=== PATIENT | male | born 1945 | race Caucasian/White ===

== ENCOUNTER → 2017-02-03 | Outpatient (CLI) | payer OTHER ==
[~2017-02-03] MED LIST: BACITRACIN 50000 UNIT VIAL ONE; BUPIVACAINE/EPINEPHRINE 0.5% MPF 1:200,000 30 ML VIAL ONE; CITA40TA4 PO; GABA-113 PO; HEPARIN SOD (PORCINE) 1000 UNIT/ML 10 ML VIAL ONE; HYDR-3419 PO; NAPR500T3 PO; OMEG10007 PO; PRT/40 PO; THROMBIN 5000 UNITS KIT ONE; THROMBIN FOR SOLN 20000 UNIT KIT ONE
--- NOTE | 2017-02-03 10:51 | DIAGNOSTIC IMAGING REPORT ---
CT LUMBAR SPINE WITHOUT CT DOSE: 668.51 mGycm CLINICAL HISTORY: LUMBAR SPINE PAIN, LUMBAR STENOSIS, PRE-OP TECHNIQUE: Helical images were acquired in transverse plane. Reformatted sagittal and coronal images were reviewed. CONTRAST: No contrast was administered COMPARISON STUDY: None. FINDINGS: L1-2 level: There is minimal retrolisthesis of L1 on L2. There is a circumferential disc bulge present. There is mild spinal stenosis. There is no stomach and foraminal narrowing. L2-3 level: There is a circumferential disc bulge present. There is moderate spinal stenosis. There is no significant foraminal narrowing. L3-4 level: There is a circumferential disc bulge present. There is moderate to severe spinal stenosis. There is no significant foraminal narrowing. L4-5 level: There are postsurgical changes of a discectomy and interbody fusion. There is a grade 1 spondylolisthesis of L4 on L5. There is posterior fusion with L4 and L5 pedicle screws. There is facet joint fragmentation. There is a 16 x 3 mm bony density which extends into the spinal canal. This results in spinal canal narrowing. L5-S1 level: There is a mild circumferential disc bulge. There is no significant spinal or foraminal stenosis. IMPRESSION: 1. Postsurgical changes of a discectomy and spinal fusion at the L4-5 level. At this level there is facet joint fragmentation, and there is a bony density extending into the spinal canal measuring 16 x 3 mm 2. Multilevel spondylitic changes with multilevel spinal stenosis most severe at the L2-3 and L3-4 levels. Electronically signed by: Chester Jimenez M.D. 02/03/2017 10:50 AM Dictated Date/Time: 02/03/2017 10:45 AM
== END | disposition home or self-care (01) ==
LOC: C.CTS 10:22
PROVIDERS: ATTEND Orthopaedic Surgery Orthopaedic Surgery of the Spine
DX: M54.5 Low back pain (principal)

== ENCOUNTER 2017-02-18 08:32 | Inpatient (IN) | payer OTHER ==
[2017-01-27 08:41] VITALS: BMI 26.0
--- NOTE | 2017-01-27 09:26 | PAT Medication Instructions ---
Service Date Jan 27, 2017. Current Home Medication List Citalopram (Citalopram Hydrobromide), 1 TAB PO QAM Fish Oil ([place]-3), 1 CAP PO PRN Gabapentin (Neurontin), 300 MG PO TID Hydrocodon/Acetaminophen 5MG/300MG (Vicodin (5MG/300MG)), 1 TAB PO Q6H PRN for Pain Naproxen (Naproxen), 1 TAB PO BID Pantoprazole (Pantoprazole Sodium), 1 TAB PO QAM Medication Instructions For Your Scheduled Surgery Naproxen (Naproxen), 1 TAB PO BID (per surgeon for instructions) - Hold the following medications 2 weeks prior to surgery: Fish Oil ([place]-3), 1 CAP PO PRN - Take the following medications the morning of surgery with a sip of water: Pantoprazole (Pantoprazole Sodium), 1 TAB PO QAM Gabapentin (Neurontin), 300 MG PO TID Citalopram (Citalopram Hydrobromide), 1 TAB PO QAM Hydrocodon/Acetaminophen 5MG/300MG (Vicodin (5MG/300MG)), 1 TAB PO Q6H PRN for Pain (okay to take up to 4 hours prior to surgery if needed) - Take the following medications as scheduled the night before surgery: Gabapentin (Neurontin), 300 MG PO TID Hydrocodon/Acetaminophen 5MG/300MG (Vicodin (5MG/300MG)), 1 TAB PO Q6H PRN for Pain If you have any questions please call us at [phone] (Genevieve Rodgers PA-C) or [phone] or [phone]
--- NOTE | 2017-01-27 10:04 | DIAGNOSTIC IMAGING REPORT ---
CHEST PREADMISSION(PA/LAT) CLINICAL HISTORY: PAT preoperative evaluation COMPARISON STUDY: No previous studies for comparison. FINDINGS: The bones soft tissues and hemidiaphragms are normal. The cardiomediastinal silhouette is normal. The lungs are clear. The pulmonary vasculature is normal. IMPRESSION: Negative chest. Electronically signed by: Odilon Jacobsen M.D. 01/27/2017 10:02 AM Dictated Date/Time: 01/27/2017 10:02 AM
[2017-01-27 10:46] LABS: BASO % 0.4 %; BASO ABS # 0.02 K/uL (0-0.2); COMPLETE YES; EOS % 3.7 %; HEMATOCRIT 38.4 % (42-52); IG% 0.2 %; LYMPH % 18.5 %; LYMPH ABS # 0.91 K/uL (1.2-3.4); MEAN CELL VOLUME 79.7 fL (80-100); MEAN CORPUSCULAR HEMOGLOBIN 27.4 pg (25-34); MEAN CORPUSCULAR HGB CONC 34.4 g/dl (32-36); MEAN PLATELET VOLUME 10.8 fL (7.4-10.4); MONO % 7.9 %; NEUT % 69.3 %; PLATELET COUNT 182 K/uL (130-400); RED BLOOD COUNT 4.82 M/uL (4.7-6.1); WHITE BLOOD COUNT 4.93 K/uL (4.8-10.8)
[2017-01-27 11:07] LABS: URINE APPEARANCE CLEAR (CLEAR); URINE BILIRUBIN NEG (NEG); URINE COLOR YELLOW; URINE NITRITE NEG (NEG); URINE PH 5.5 (4.5-7.5); URINE SPECIFIC GRAVITY 1.025 (1.000-1.030); UROBILINOGEN NEG (NEG)
[2017-01-27 11:23] LABS: BUN/CREATININE RATIO 20.9 (10-20); CALCIUM 8.9 mg/dl (8.5-10.1); CREATININE 1.3 mg/dl (0.60-1.40); POTASSIUM 4.4 mmol/L (3.5-5.1)
[2017-01-27 11:25] LABS: MANUAL MICROSCOPIC REQUIRED? NO; REVIEW REQ? NO
[2017-01-27 11:26] LABS: URINE EPITHELIAL CELL AUTO 0-5 /lpf (0-5)
[2017-02-18] VITALS (8 sets, daily range): BP systolic 99–159; BP diastolic 64–111; PULSE 62–88; TEMP 36.4–36.9; O2SAT 90–99; Ht 175.3 cm; Wt 79.9 kg
[~2017-02-18] VITALS: Ht 175.3 cm; Wt 79.9 kg
[~2017-02-18 08:32] MED LIST changes: -BACITRACIN 50000 UNIT VIAL ONE; -BUPIVACAINE/EPINEPHRINE 0.5% MPF 1:200,000 30 ML VIAL ONE; +CEFAZOLIN 2000 MG/60 ML D5W IV SCH; +CeleBREX 200 MG CAP PO SCH; -HEPARIN SOD (PORCINE) 1000 UNIT/ML 10 ML VIAL ONE; +LACTATED RINGER'S 1000ML 1,000 ML IV SCH; +PANT40TA2 PO; +PREGABALIN 75 MG CAP PO SCH; -PRT/40 PO; -THROMBIN 5000 UNITS KIT ONE; -THROMBIN FOR SOLN 20000 UNIT KIT ONE
[2017-02-18] MEDS ORDERED: FENTANYL CITRATE INJ 50 MCG/1 ML 2 ML VIAL ONE ×4 (11:17→14:27)
[2017-02-18] MEDS ORDERED: MIDAZOLAM HCL 1 MG/ML 2ML VIAL ONE (11:17)
[2017-02-18] MEDS ORDERED: HYDROmorphone INJ 2 MG/ML SYR/VIAL IV PRN (11:30)
[2017-02-18] MEDS ORDERED: EpHEDrine SULFATE INJ 50 MG/ML AMP IV PRN (11:30)
[2017-02-18] MEDS ORDERED: PHENYLEPHRINE 100MCG/ML 5ML SYR IV PRN (11:30)
[2017-02-18] MEDS ORDERED: ATROPINE SULFATE 0.1 MG/ML 5ML SYR IV PRN (11:30)
[2017-02-18] MEDS ORDERED: ONDANSETRON INJ 2 MG/ML 2 ML VIAL IV PRN ×2 (11:30→14:30)
--- NOTE | 2017-02-18 12:08 | History and Physical ---
History & Physical Date Feb 18, 2017. Chief Complaint LBP and bilateral leg pain History of Present Illness The patient is a 71 year old male with complaints of severe bilateral hip pain and back pain that has progressed for years. He had multiple lumbar decompressions done with the final one being a L4-5 fusion complicated with CSF leak done in 2000. After a trauma he developed a R foot drop that has persisted , he uses an AFO on right. He also has subjective weakness in his LLE but not as severe. He reports numbness in both LE's below knee. no incontinence. His CT scan shows L3-4 and L4-5 stenosis. there are pedicle screws at L4-5. MRI confirms stenosis greatest at L3-5. mild DDD/stenosis L2-3 but not significant. Past Medical/Surgical History hx lumbar surgeries, last 2000 bilateral rotator cuff repair ben GERD chronic LBP kidney disease stage III depression Additional History Hepatic Disease: No Endocrine Disorder: No Kidney Disease: Yes Hypertension: No Heart Disease: No Bleeding Tendencies: No Infectious Diseases: No Allergies Coded Allergies: No Known Allergies (Unverified , 02/18/17) Home Medications Scheduled Citalopram (Citalopram Hydrobromide), 1 TAB PO QAM Fish Oil ([place]-3), 1 CAP PO PRN Gabapentin (Neurontin), 300 MG PO TID Naproxen (Naproxen), 1 TAB PO BID Pantoprazole (Pantoprazole Sodium), 1 TAB PO QAM Scheduled PRN Hydrocodon/Acetaminophen 5MG/300MG (Vicodin (5MG/300MG)), 1 TAB PO Q6H PRN for Pain Physical Examination Skin: warm/dry Eyes: normal inspection ENT: normal ENT inspection Head: normocephalic, atraumatic Neck: supple, trachea midline Respiratory/Chest: lungs clear, no respiratory distress Cardiovascular: regular rate, rhythm Back: normal inspection (midline scar) Neurologic/Psych: alert, oriented x 3, + pertinent finding (bilateral absent DTRS, str DF on right 1/5 on left 2/5, decreased sensation lt tch BLE's below knees. ) Diagnosis L3-5 stenosis, L4- 5 PSF, bilateral LE foot drops with progressive pain Plan of Treatment Hardware removal L4-5, L3-4 decompression, L4-5 revision decompression, risk of CSF leak and nerve injury emphasized
[2017-02-18] MEDS ORDERED: HYDROmorphone INJ 2 MG/ML SYR/VIAL ONE ×3 (12:48→14:28)
[2017-02-18] MEDS ORDERED: THROMBIN FOR SOLN 20000 UNIT KIT ONE ×2 (13:00→13:06)
[2017-02-18] MEDS ORDERED: BACITRACIN 50000 UNIT VIAL ONE (13:06)
[2017-02-18] MEDS ORDERED: THROMBIN 5000 UNITS KIT ONE (13:06)
[2017-02-18] MEDS ORDERED: HEPARIN SOD (PORCINE) 1000 UNIT/ML 10 ML VIAL ONE (13:06)
[2017-02-18] MEDS ORDERED: BUPIVACAINE/EPINEPHRINE 0.5% MPF 1:200,000 30 ML VIAL ONE (13:06)
[2017-02-18] MEDS ORDERED: ROCURONIUM BROMIDE 10 MG/ML 5 ML VIAL ONE (13:43)
[2017-02-18] MEDS ORDERED: PROPOFOL IV EMULSION 10 MG/ML 20 ML VIAL IV ONE (13:43)
[2017-02-18] MEDS ORDERED: DEXAMETHASONE SOD INJ 4 MG/ML VIAL ONE (13:43)
[2017-02-18] MEDS ORDERED: LIDOCAINE HCL 2% 2 ML VIAL (20MG/ML) ONE (13:43)
[2017-02-18] MEDS ORDERED: ONDANSETRON INJ 2 MG/ML 2 ML VIAL ONE ×2 (13:43→14:29)
[2017-02-18] MEDS: FLOSEAL HEMOSTATIC MATRIX 10ML TOP ONE ×2 (14:15→14:20)
[2017-02-18] MEDS ORDERED: SODIUM CHLORIDE 0.9% 1000ML 1,000 ML IV SCH (14:23)
[2017-02-18] MEDS: SODIUM CHLORIDE 0.9% 1000ML 1,000 ML IV SCH (14:23)
--- NOTE | 2017-02-18 14:23 | [facility] Post Operative Brief Note ---
Immediate Operative Summary Operative Date Feb 18, 2017. Pre-Operative Diagnosis L3-5 stenosis, L4- 5 Posterior Spinal Fusion, bilateral lower extermity foot drops with progressive pain Post-Operative Diagnosis L3-5 stenosis, L4- 5 Posterior Spinal Fusion, bilateral lower extermity foot drops with progressive pain Procedure(s) Performed L4-L5 Hardware Removal; L3-L5 Decompression, Posterior Spinal Fusion, Instrumentation, Arteriocyte Surgeon Dr Masood Walter Supervisor/Port Director Surgeon(s) Jayson Carson PC-A Estimated Blood Loss 450ml Findings dict Specimens A: Explanted hardware lumbar spine L4-L5
[2017-02-18] MEDS ORDERED: NEOSTIGMINE METHYLSULFATE 1 MG/ML 10ML VIAL ONE (14:29)
[2017-02-18] MEDS ORDERED: EpHEDrine SULFATE INJ 50 MG/ML AMP ONE (14:29)
[2017-02-18] MEDS ORDERED: GLYCOPYRROLATE INJ 0.2 MG/ML VIAL ONE (14:29)
[2017-02-18] MEDS ORDERED: EpHEDrine SULFATE 50MG/5ML SYR ONE (14:29)
[2017-02-18] MEDS ORDERED: ACETAMINOPHEN IV 100 ML IV PRN (14:30)
[2017-02-18] MEDS ORDERED: LORAZEPAM 0.5 MG TAB PO PRN (14:30)
[2017-02-18] MEDS ORDERED: ALUMINUM/MAGNESIUM SUSP 30 ML UDC PO PRN (14:30)
[2017-02-18] MEDS ORDERED: METOCLOPRAMIDE HCL INJ 5 MG/ML 2 ML VIAL IV PRN (14:30)
[2017-02-18] MEDS ORDERED: LORAZEPAM INJ 0.5 MG in SYRINGE 0 ML IV PRN (14:30)
[2017-02-18] MEDS ORDERED: PROMETHAZINE HCL INJ 12.5 MG in SODIUM CHLORIDE 0.9% 50ML 50 ML IV PRN (14:30)
[2017-02-18] MEDS ORDERED: FAMOTIDINE 20 MG TAB PO PRN (14:30)
[2017-02-18] MEDS ORDERED: hydrOXYzine HCL 25 MG TAB PO PRN (14:30)
[2017-02-18] MEDS ORDERED: SOD PHOSPHATE/SOD BIPHOSPHATE ENEMA 132 ML BTL PR PRN (14:30)
[2017-02-18] MEDS ORDERED: HYDROmorphone INJ 0.5 MG/0.5 ML SYR IV PRN (14:30)
[2017-02-18] MEDS ORDERED: BISACODYL 10 MG SUPP PR PRN (14:30)
[2017-02-18] MEDS ORDERED: MAGNESIUM HYDROXIDE SUSP 30 ML UDC PO PRN (14:30)
[2017-02-18] MEDS ORDERED: NALOXONE HCL 0.4 MG/1 ML VIAL/CARP IV PRN ×2 (14:30)
--- NOTE | 2017-02-18 14:41 | DIAGNOSTIC IMAGING REPORT ---
LUMBAR SPINE 2 OR 3 VIEW CLINICAL HISTORY: L4-L5 HARDWARE REMOVAL;L3-L5 DECOMP/FUSION COMPARISON STUDY: Lumbar spine CT February 03, 2017. Fluoroscopy time: 7 seconds. FINDINGS: These 2 fluoroscopic images demonstrate a posterior decompression. Anterolisthesis of L4 and L5 is unchanged. There are are bilateral pedicle screws at the L3 and L5 levels with a right pedicle screw at the L4 level. There are interconnecting rods. Hardware is intact. A previous L4-L5 discectomy with interbody spacer placement as noted. IMPRESSION: Findings consistent with an L3-L5 pedicle screw fusion. Electronically signed by: Conrado Guajardo M.D. 02/18/2017 2:39 PM Dictated Date/Time: 02/18/2017 2:37 PM
[2017-02-18] MEDS ORDERED: MoRPHine SULFATE 1 MG/ML 50 ML PCA CASS ONE (14:44)
--- NOTE | 2017-02-18 15:15 | OPERATIVE REPORT ---
DATE OF OPERATION: 02/18/2017 PREOPERATIVE DIAGNOSES: 1. Previous L4-L5 instrumented fusion. 2. Residual L4-L5 stenosis. 3. L3-L4 spinal stenosis adjacent level degeneration and L3-L4 degenerative spondylolisthesis - grade 1. POSTOPERATIVE DIAGNOSES: Same. PROCEDURES: 1. L3 laminectomy with revision L4-L5 decompression. 2. Hardware removal L4-L5 - bilateral. 3. Segmental pedicle screw instrumentation - bilateral L3-L5 with K2M Murchison pedicle screws. 4. Posterolateral fusion L3-L4 - bilateral with local bone, bone putty, bone marrow aspirate, tricalcium phosphate. 5. Right iliac crest bone marrow aspiration stem cell concentration, application bone graft clothing designer. SURGEON: Masood Walter M.D. INVENTORY ANALYST: Jayson Carson PA-C. Please note he participated in all portions of the procedure and was critical for performance of procedure, participated in positioning, prepping, draping, retraction, and wound closure. ANESTHESIA: General endotracheal anesthesia. COMPLICATIONS: None. ESTIMATED BLOOD LOSS: 450 mL. PROCEDURE: After identification of patient and operative level, he was brought to the OR where he underwent induction of general anesthesia. He was then positioned prone on Gilbert OR table. All bony prominences were well padded. Care was taken to avoid pressure on the periorbital area. Lumbosacral area was sterilely prepped and draped in usual fashion. Antibiotics were administered, time-out was performed, level was confirmed and skin incision was infiltrated with Marcaine with epinephrine and skin incision was made from spinous process of L2-L5. I exposed the previous hardware, identified the fusion mass and confirmed level with fluoroscopy. I then did an L3 laminectomy using an osteotome to remove the hypertrophied facets at L3-L4 bilaterally. I then completed decompression with Kerrisons at L3-L4. I was able to pass the probe along the medial border of the pedicle of L4 confirming decompression as well as into the foramina of L3 bilaterally. I then filled the dural tube it distally and caudally and redecompressed the scar laminectomy bed of L4-L5. A great deal atypical ossification dorsal scarred dural tube removed all loose dorsal ossifications, so that I could pass the probe in the neural foramina of L4 and palpated the pedicles of L5 bilaterally. I then proceeded to remove the hardware at L4-L5 bilaterally and confirmed the fusion was intact. I then placed pedicle screws bilaterally into L3, on the left at L4 bilaterally and L5 with K2M Murchison pedicle screws. I lowered the Jamison frame to restore lordosis, applied rods and end caps from L3-L5 bilaterally and final tightened all endcaps and decorticated transverse process of L3 and fusion mass at facets of L3-L4 with high speed bur bilaterally. I then packed the lateral gutters with bone graft mixture consisting of local bone was morselized in a bone mill. Bone marrow aspirate taken from the right iliac crest via separate stab incision with a Jamshidi needle concentrated bone marrow stem cell concentration system and then mixed with the clothing designer. I then packed this over the decorticated transverse process and I did irrigate prior to bone grafting. I also placed a MENG drain deep prior to its layered closure. All sponge and needle counts were correct at the end of the case. I attest to the content of the Intraoperative Record and any orders documented therein. Any exceptio ns are noted below.
--- NOTE | 2017-02-18 15:17 | Anesthesiology Progress Note ---
Anesthesia Post Op Note Date & Time Feb 18, 2017 at 15:15 Vital Signs Pain Intensity: 1 Vital Signs Past 12 Hours Date Time Temp Pulse Resp B/P Pulse Ox O2 Delivery O2 Flow Rate FiO2 02/18/17 15:05 76 15 121/72 100 Nasal Cannula 4 02/18/17 14:55 74 20 127/67 100 Mask 10 02/18/17 14:45 85 12 142/93 95 Mask 10 02/18/17 14:35 36.7 97 11 131/76 95 Mask 10 02/18/17 10:06 36.5 71 20 159/96 98 Room Air Notes Mental Status: alert / awake / arousable, participated in evaluation Pt Amnestic to Procedure: Yes Nausea / Vomiting: adequately controlled Pain: adequately controlled Airway Patency, RR, SpO2: stable & adequate BP & HR: stable & adequate Hydration State: stable & adequate Anesthetic Complications: no major complications apparent
[2017-02-18] MEDS: MoRPHine SULFATE 1 MG/ML 50 ML PCA CASS IV PRN ×2 (16:45→22:53)
[2017-02-18] MEDS: DEXAMETHASONE INJ 6 MG in SYRINGE 0 ML IV SCH (20:09)
[2017-02-18] MEDS: CEFAZOLIN IV 1,000 MG in DEXTROSE 5% 50ML 50 ML IV SCH (20:14)
[2017-02-18] MEDS: GABAPENTIN 300 MG CAP PO SCH (20:16)
[2017-02-18] MEDS: DOCUSATE SODIUM/SENNA 50/8.6MG TAB PO SCH (20:17)
[2017-02-18] MEDS ORDERED: NURSING DECISION MEDICATION ORDER SCH (21:30)
[2017-02-18] MEDS ORDERED: COUGH DROP (SUGAR FREE) LOZ 24 LOZ/1 BOX PO PRN (21:45)
[2017-02-19] MEDS: DEXAMETHASONE INJ 6 MG in SYRINGE 0 ML IV SCH ×2 (01:58→10:08)
[2017-02-19] MEDS: SODIUM CHLORIDE 0.9% 1000ML 1,000 ML IV SCH (03:39)
[2017-02-19] MEDS: CEFAZOLIN IV 1,000 MG in DEXTROSE 5% 50ML 50 ML IV SCH (03:40)
[2017-02-19 03:57] VITALS: BP 108/65; PULSE 62; TEMP 36.6; O2SAT 96
[2017-02-19 05:35] LABS: COMPLETE YES; HEMATOCRIT 31.5 % (42-52); IG% 0.2 %; LYMPH % 3.2 %; LYMPH ABS # 0.26 K/uL (1.2-3.4); MEAN CELL VOLUME 79.1 fL (80-100); MEAN CORPUSCULAR HEMOGLOBIN 26.9 pg (25-34); MEAN PLATELET VOLUME 10.7 fL (7.4-10.4); MONO % 2.1 %; NEUT % 94.5 %; PLATELET COUNT 150 K/uL (130-400); RED BLOOD COUNT 3.98 M/uL (4.7-6.1); WHITE BLOOD COUNT 8.04 K/uL (4.8-10.8)
[2017-02-19 05:59] LABS: BUN/CREATININE RATIO 14.2 (10-20); CALCIUM 8.3 mg/dl (8.5-10.1); CREATININE 1.6 mg/dl (0.60-1.40); POTASSIUM 4.6 mmol/L (3.5-5.1)
[2017-02-19] MEDS ORDERED: HYDROmorphone INJ 1 MG/ML SYR IV PRN (06:00)
[2017-02-19] MEDS ORDERED: HYDROmorphone INJ 0.5 MG/0.5 ML SYR IV PRN (06:00)
[2017-02-19] MEDS ORDERED: DC PCA ONE (06:00)
[2017-02-19] MEDS ORDERED: NURSING VERBAL MED ORDER ONE (06:15)
[2017-02-19 07:20] VITALS: BP 92/57; PULSE 65; TEMP 36.8; O2SAT 97
[2017-02-19] MEDS: CITALOPRAM 40 MG TAB PO SCH (08:47)
[2017-02-19] MEDS: GABAPENTIN 300 MG CAP PO SCH ×3 (08:47→20:40)
[2017-02-19] MEDS: PANTOprazole SOD 40 MG TAB PO SCH (08:47)
--- NOTE | 2017-02-19 08:47 | Anesthesiology Progress Note ---
Anesthesia Post Op Note Date & Time Feb 19, 2017 at 08:46 Vital Signs Pain Intensity: 1.0 Vital Signs Past 12 Hours Date Time Temp Pulse Resp B/P Pulse Ox O2 Delivery O2 Flow Rate FiO2 02/19/17 07:20 36.8 65 16 92/57 97 Room Air 02/19/17 03:57 36.6 62 16 108/65 96 Room Air 02/18/17 23:55 Room Air 02/18/17 23:10 36.8 62 18 120/64 96 Room Air Notes Mental Status: alert / awake / arousable, participated in evaluation Pt Amnestic to Procedure: Yes Nausea / Vomiting: adequately controlled Pain: adequately controlled Airway Patency, RR, SpO2: stable & adequate BP & HR: stable & adequate Hydration State: stable & adequate Anesthetic Complications: no major complications apparent
--- NOTE | 2017-02-19 10:44 | Orthopedic Progress Note ---
Orthopedic Progress Note Date of Service Feb 19, 2017. Subjective Post OP Day: 1 Reports: feeling well, pain controlled w PO medications, Denies: SOB, calf pain , chest pain, complaints, light headedness, nausea / vomiting, using SILVERLIGHT DEVELOPER Objective calves soft nontender, N/V intact, dressing C/D/I, A&O x3, hemovac drainage Date Time Temp Pulse Resp B/P Pulse Ox O2 Delivery O2 Flow Rate FiO2 02/19/17 08:30 Room Air 02/19/17 07:20 36.8 65 16 92/57 97 Room Air 02/19/17 03:57 36.6 62 16 108/65 96 Room Air 02/18/17 23:55 Room Air 02/18/17 23:10 36.8 62 18 120/64 96 Room Air 02/18/17 19:45 36.6 66 16 110/65 98 Nasal Cannula 3.0 02/18/17 19:14 36.9 68 17 121/68 99 Nasal Cannula 3.0 02/18/17 18:45 36.6 71 17 121/72 97 Nasal Cannula 3.0 02/18/17 17:41 36.4 88 17 136/111 90 Nasal Cannula 3.0 02/18/17 17:10 36.7 74 17 99/67 99 Nasal Cannula 3.5 02/18/17 16:45 36.7 70 16 120/71 98 Nasal Cannula 4.0 02/18/17 16:45 98 Nasal Cannula 4.0 02/18/17 16:45 98 Nasal Cannula 4.0 02/18/17 16:30 71 14 131/74 99 Nasal Cannula 4 02/18/17 16:15 76 20 109/75 100 Nasal Cannula 4 02/18/17 16:00 80 19 104/68 97 Nasal Cannula 4 02/18/17 15:45 70 18 91/74 100 Nasal Cannula 4 02/18/17 15:35 71 14 119/75 100 Nasal Cannula 4 02/18/17 15:25 69 18 121/66 100 Nasal Cannula 4 02/18/17 15:15 36.3 71 17 128/74 100 Nasal Cannula 4 02/18/17 15:05 76 15 121/72 100 Nasal Cannula 4 02/18/17 14:55 74 20 127/67 100 Mask 10 02/18/17 14:45 85 12 142/93 95 Mask 10 02/18/17 14:35 36.7 97 11 131/76 95 Mask 10 Laboratory Results 24 Hours: Test 02/19/17 04:55 White Blood Count 8.04 K/uL Red Blood Count 3.98 M/uL Hemoglobin 10.7 g/dL Hematocrit 31.5 % Mean Corpuscular Volume 79.1 fL Mean Corpuscular Hemoglobin 26.9 pg Mean Corpuscular Hemoglobin Concent 34.0 g/dl Platelet Count 150 K/uL Mean Platelet Volume 10.7 fL Neutrophils (%) (Auto) 94.5 % Lymphocytes (%) (Auto) 3.2 % Monocytes (%) (Auto) 2.1 % Eosinophils (%) (Auto) 0.0 % Basophils (%) (Auto) 0.0 % Neutrophils # (Auto) 7.59 K/uL Lymphocytes # (Auto) 0.26 K/uL Monocytes # (Auto) 0.17 K/uL Eosinophils # (Auto) 0.00 K/uL Basophils # (Auto) 0.00 K/uL Assessment & Plan Assessment: doing well, preop symptoms improved, very pleased Plan: PT/scds/ d/c tomorrow?
[2017-02-19 11:46] VITALS: BP 123/66; PULSE 68; TEMP 36.7; O2SAT 99
[2017-02-19 15:08] VITALS: BP 104/66; PULSE 66; TEMP 36.8; O2SAT 99
[2017-02-19] MEDS: OXYCODONE HCL IR 5 MG TAB (IMMEDIATE RELEASE) PO PRN (19:36)
[2017-02-19] MEDS: DOCUSATE SODIUM/SENNA 50/8.6MG TAB PO SCH (20:40)
[2017-02-19 23:35] VITALS: BP 110/65; PULSE 65; TEMP 36.6; O2SAT 98
[2017-02-20] MEDS ORDERED: POLYETHYLENE (MIRALAX) 17 GM PACK PO SCH (06:00)
[2017-02-20] MEDS ORDERED: NURSING DECISION MEDICATION ORDER SCH (06:45)
[2017-02-20 07:16] VITALS: BP 114/64; PULSE 69; TEMP 36.5; O2SAT 100
[2017-02-20] MEDS: CITALOPRAM 40 MG TAB PO SCH (08:46)
[2017-02-20] MEDS: GABAPENTIN 300 MG CAP PO SCH ×2 (08:46→14:04)
[2017-02-20] MEDS: PANTOprazole SOD 40 MG TAB PO SCH (08:46)
[2017-02-20] MEDS ORDERED: HYDR-3419 PO (09:26)
--- NOTE | 2017-02-20 09:27 | Discharge Instructions ---
Discharge Instructions Date of Service Feb 20, 2017. Admission Reason for Admission: Lumbar Spinal Stenosis Discharge Discharge Diagnosis / Problem: same Discharge Goals Goal(s): Decrease discomfort Activity Recommendations Activity Limitations: per Instructions/Follow-up section . Instructions / Follow-Up Instructions / Follow-Up ACTIVITY RECOMMENDATIONS: SELF CARE INSTRUCTIONS AFTER THORACIC/LUMBAR FUSIONS 1. You may walk to your tolerance. It is good exercise for your legs and back. Expect some back and intermittent leg aches and pains. 2. You may perform "counter-top" level activities (make a sandwich, chris with a project, etc.). 3. No bending or lifting of more than 10 pounds or back twisting of any nature (roll like a log when turning in bed). 4. You may ride in a car for 20-30 minutes at a time. No driving until after your first visit with your doctor. 5. Frequent changes of position and restricting sitting to 30 minutes at a time will help limit the amount of back spasms and stiffness you may experience. 6. You may discontinue the use of ambulatory aids (cane, crutches, etc.) once your strength and confidence allow. 7. You may line rider the shower and let water strike your incision when you arrive home at least once daily. Do not take a tub bath, sit in a hot tub or go into a swimming pool until after your first recheck in the office. SPECIAL CARE INSTRUCTIONS: VERY IMPORTANT TO READ AND REVIEW A. Your surgical incision has been closed with a cosmetic suture under the skin that will dissolve in about 6 weeks. In 14 days, you can use a pair of clean scissors and cut the suture that is left outside of the skin at the ends of your incision. 1. The small skin tapes can be removed 7 days after surgery if they have not fallen off by that point. 2. You may keep the wound open to air as much as possible to promote healing after post-op day number 5 unless told otherwise by your doctor. 3. If you think the wound looks like it is becoming infected (redness or worsening drainage) and/or you are experiencing fever, chill or worsening back pain and muscle spasms, contact the office so that we may evaluate you as soon as possible. B. Complications are uncommon, but please contact us if you have any signs or symptoms of: 1. wound infection (fever higher than 102.5 degrees F, redness, separation of wound, drainage, or increasing pain from the incision) 2. blood clots in legs (pain, swelling, redness and warmth in legs) 3. urinary tract infection (fever higher than 102.5 degrees F, burning upon urination or increased frequency of urination) 4. nerve problems (inability to walk on your toes or heels, numbness, loss of bowel or bladder control) 5. any other symptoms that concern you C. Please call the office at if you have any concerns or questions about your operation or recovery. D. No smoking! Smoking drastically decreases the chance of a solid fusion. E. Do not take any anti-inflammatory medications (Indocin, Advil, Motrin, Aspirin, Naprosyn, etc.) as these may inhibit the chance of a solid fusion. Tylenol is okay to take for pain. MANAGING PAIN AFTER SPINAL SURGERY 1. Narcotic medication is intended for short-term use and will be provided for surgical pain. Surgical pain usually lasts for a period of 4-6 weeks. Narcotic medication includes Percocet, Vicodin, Darvocet, Tylenol #3 or Lortab. 2. Longer-term pain is more appropriately treated with non-narcotic medication such as Tylenol ES. 3. Muscle spasm is not appropriately treated with narcotics. Muscle relaxers such as Soma, Flexeril or Skelaxin can be used along with Tylenol ES. 4. Remember that we all live with some "aches and pains". This is not unusual or uncommon after an injury or as we get older. a. Back pain is expected and may include muscle spasms for 4 to 6 weeks after surgery. The pain should gradually improve. If the pain worsens for no apparent reason, please contact the office. b. Intermittent leg pain may also be experienced and should not be concerned about unless it worsens for no apparent reason. If so, please contact the office. 5. We will provide appropriate medication within the normal guidelines of their prescribed use. We will also be very cautious and aware of potential abuse and extended duration of patients' medication needs. a. Pain medications are for your comfort and to assist with sleep and rest so that the tissue can heal. They are not provided in order to return to normal activity and should not be used through the day. To do so or worsening pain at night can result from ongoing tissue damage and development of tolerance to the prescribed medicine. 6. Please allow 2-3 days to process refills. Prescriptions will not be mailed but must be picked up at the office. FOLLOW UP VISIT: Keep your scheduled follow-up appointment. Any questions, please call the office at . Current Hospital Diet Patient's current hospital diet: Regular Diet Discharge Diet Recommended Diet: Regular Diet Procedures Procedures Performed: L4-L5 Hardware Removal; L3-L5 Decompression, Posterior Spinal Fusion, Instrumentation, Arteriocyte Pending Studies Studies pending at discharge: no Medical Emergencies . Who to Call and When: Medical Emergencies: If at any time you feel your situation is an emergency, please call 911 immediately. . Non-Emergent Contact Non-Emergency issues call your: Surgeon . "Provider Documentation" section prepared by aMsood Walter. VTE Core Measure Inpt VTE Proph given/why not?: SCD's [place] Drug Monitoring Program Search Results: patient reviewed within database, no issues identified
--- NOTE | 2017-02-20 09:29 | Orthopedic Progress Note ---
Orthopedic Progress Note Date of Service Feb 20, 2017. Subjective Post OP Day: 1 Reports: feeling well, pain controlled w PO medications, Denies: SOB, calf pain , chest pain, complaints, light headedness, nausea / vomiting, using BIOMEDICAL FIELD SERVICE ENGINEER Objective calves soft nontender, N/V intact, dressing C/D/I, A&O x3, hemovac drainage Date Time Temp Pulse Resp B/P Pulse Ox O2 Delivery O2 Flow Rate FiO2 02/20/17 08:20 Room Air 02/20/17 07:16 36.5 69 18 114/64 100 Room Air 02/19/17 23:35 36.6 65 18 110/65 98 Room Air 02/19/17 20:00 Room Air 02/19/17 15:08 36.8 66 17 104/66 99 Room Air 02/19/17 14:50 Room Air 02/19/17 11:46 36.7 68 16 123/66 99 Room Air Assessment & Plan Assessment: doing well, preop symptoms improved, very pleased Plan: d/c later today, keep drain in until then
[2017-02-20 10:50] VITALS: BP 111/62; PULSE 72; O2SAT 97
[2017-02-20 14:08] VITALS: BP 111/62; PULSE 72; TEMP 36.5; O2SAT 97
[2017-02-20 15:31] VITALS: BP 122/72; PULSE 67; TEMP 36.7; O2SAT 98
[2017-02-20] MEDS: OXYCODONE HCL IR 5 MG TAB (IMMEDIATE RELEASE) PO PRN (16:04)
--- NOTE | 2017-03-24 16:57 | Discharge Summary ---
Orthopedic Discharge Summary Admission Date/Reason Feb 18, 2017 at 12:00 Lumbar Spinal Stenosis. Discharge Date/Disposition Feb 20, 2017 Home Diagnosis Principal Diagnosis: same Secondary Diagnoses/Problems: previous lumbar fusion Procedure(s) Performed L4-5 HWR, L3-4 decompression, L3-5 PSF Medication Reconciliation Changed Medications: Hydrocodon/Acetaminophen 5MG/300MG (Vicodin (5MG/300MG)) 1 Tab Tab 1 TAB PO Q6H PRN for Pain, #90 TAB (Changed from: DOSE IS 5/325 MG ON MED BOTTLE ) DOSE IS 5/325 MG ON MED BOTTLE Continued Medications: Citalopram (Citalopram Hydrobromide) 40 Mg Tab 1 TAB PO QAM, TAB Fish Oil ([place]-3) 1 Ea Cap 1 CAP PO PRN, CAP TAKES A TABLET WHEN FEELING RUN DOWN - NOT EVERY DAY - HAS NOT TAKEN IN 3 WEEKS Gabapentin (Neurontin) 300 Mg Cap 300 MG PO TID, CAP Naproxen (Naproxen) 500 Mg Tab 1 TAB PO BID, TAB Pantoprazole (Pantoprazole Sodium) 40 Mg Tab 1 TAB PO QAM Admission Physical Exam As per Admitting History & Physical. Hospital Course The patient was admitted for elective spinal surgery and underwent the procedure without complication. They were transferred to the floor in stable condition, they remained hemodynamically stable, had pain controlled on oral pain medication, ambulated with PT and were discharged home in stable condition when medically and functionally cleared. Discharge Instructions Please refer to the electronic Patient Visit Report (Discharge Instructions) for additional information.
== END 2017-02-20 17:30 | disposition home or self-care (01) | DRG 460 ==
LOC: ENRESERVDT → ENRESERVTM → C.ACU 08:32 → C.3E 12:00 → UNDOADMIN 14:25
PROVIDERS: ADMIT Orthopaedic Surgery Orthopaedic Surgery of the Spine; ATTEND Orthopaedic Surgery Orthopaedic Surgery of the Spine
PROC: 07DR3ZZ Extraction of Iliac Bone Marrow, Percutaneous Approach (ICD-10-PCS; principal; 2017-02-18 11:30)
PROC: 0SG10A1 (ICD-10-PCS; principal; 2017-02-18 11:30)
PROC: 0QP004Z Removal of Internal Fixation Device from Lumbar Vertebra, Open Approach (ICD-10-PCS; principal; 2017-02-18 11:30)
DX: M48.06 Spinal stenosis, lumbar region (principal); M43.16 Spondylolisthesis, lumbar region; N18.3 Chronic kidney disease, stage 3 (moderate); M51.36 Other intervertebral disc degeneration, lumbar region